=== PATIENT | male | born 1970 | race Caucasian/White ===

== ENCOUNTER 2018-10-28 12:28 | Emergency (ER) | payer OTHER ==
[2018-10-28] MEDS ORDERED: PREDNISONE20 M1 PO (13:16)
[2018-10-28 13:28] VITALS: BP 118/81
== END 2018-10-28 13:28 | disposition home or self-care (01) ==
LOC: ED 12:28
DX: M65.841 Other synovitis and tenosynovitis, right hand (principal); Z85.71 Personal history of Hodgkin lymphoma; Z98.890 Other specified postprocedural states; Z88.0 Allergy status to penicillin; Z88.5 Allergy status to narcotic agent; Z91.041 Radiographic dye allergy status; Z88.1 Allergy status to other antibiotic agents; F17.210 Nicotine dependence, cigarettes, uncomplicated; X50.3XXA Overexertion from repetitive movements, initial encounter; Y92.69 Other specified industrial and construction area as the place of occurrence of the external cause; Y99.0 Civilian activity done for income or pay